=== PATIENT | female | born 1975 | race Caucasian/White ===

== ENCOUNTER 2025-02-27 16:22 | Emergency (ER) | payer SELFPAY ==
[2025-02-27] MEDS ORDERED: Orphenadrine Citrate 60 MG/2 ML VIAL ONE (16:52)
[2025-02-27 16:57] LABS: Glucose, Urine (Dipstick) >=1000 mg/dL (Negative); Leukocyte Negative (Negative); Protein, Urine (Dipstick) Negative (Neg-Trace); Specific Gravity, Urine 1.015 (1.005-1.030)
[2025-02-27 17:04] LABS: Bacteria/HPF Rare-Few HPF (None Seen); CAUTI Indications for Culture Dysuria,urgency,freq; RBC/HPF None Seen HPF (0-3); Urine Culture Reflex No No; Yeast-Budding Rare HPF (None Seen)
== END 2025-02-27 17:50 | disposition home or self-care (01) ==
LOC: MADERS 16:22
DX: M54.42 Lumbago with sciatica, left side (principal); B37.41 Candidal cystitis and urethritis; R81 Glycosuria; E11.9 Type 2 diabetes mellitus without complications; E66.9 Obesity, unspecified
CPT/HCPCS: 74176; 81001; 96372; J2270; J2360